=== PATIENT | female | born 1990 | race African-American/Black ===

== ENCOUNTER 2021-03-17 01:19 | Inpatient (IN) ==
[~2021-03-17 01:19] MED LIST: Famotidine 20 MG/2 ML VIAL IVP PRN; Metoclopramide 10 MG/2 ML VIAL IVP PRN; Naloxone 0.4 MG/ML INJ IVP PRN; Penicillin G Potassium 5,000,000 UNIT in 0.9 % Sodium Chloride Mini Bag 100 ML IVPB ONE; Ringers Solution, Lactated 1,000 ML ONE
[2021-03-17] MEDS ORDERED: Azithromycin 500 MG in 0.9 % Sodium Chloride 250 ML IVPB ONE (01:26)
[2021-03-17] MEDS ORDERED: Betamethasone Acet/SodPhos 30 MG/5 ML VIAL IM SCH (01:30)
[2021-03-17] MEDS ORDERED: Ringers Solution, Lactated 1,000 ML IVC SCH ×2 (01:30→05:37)
[2021-03-17] MEDS ORDERED: Metoclopramide 10 MG/2 ML VIAL ONE (01:58)
[2021-03-17] MEDS ORDERED: Famotidine 20 MG/2 ML VIAL ONE (01:59)
[2021-03-17 02:06] LABS: Basophils % 0.1 %; Eosinophils # 0.3 K/mcL (0.0-0.6); Eosinophils % 2.5 %; Hematocrit 31.7 % (35.3-44.9); Hemoglobin 9.9 g/dL (11.5-15.4); Immature Granulocytes % 0.4 % (0-4); Lymphocytes # 2.9 K/mcL (0.6-4.6); Lymphocytes % 25.1 %; Mean Corpuscular HGB Conc 31.2 g/dL (31.6-35.5); Mean Corpuscular Hemoglobin 26.7 pg (28.0-33.3); Mean Corpuscular Volume 85.4 fL (83.0-100.0); Monocytes # 0.7 K/mcL (0.0-1.3); Monocytes % 6.5 %; Neutrophils # 7.5 K/mcL (1.6-8.9); Platelet Count 255 K/mcL (140-400); Red Blood Count 3.71 M/mcL (3.82-4.97); Red Cell Distribution Width 13.8 % (11.5-14.5); Segmented Neutrophils % 65.4 %; White Blood Count 11.4 K/mcL (4.3-11.1)
[2021-03-17] MEDS ORDERED: *HR* HYDROmorphone 2 MG TABLET PO PRN (02:08)
[2021-03-17] MEDS ORDERED: *HR* Labetalol 20 MG/4 ML SYRINGE IVP PRN (02:08)
[2021-03-17] MEDS ORDERED: Acetaminophen IV 1,000 MG/100 ML BAG IVPB ONE ×2 (02:08→02:12)
[2021-03-17] MEDS ORDERED: *HR* HYDROmorphone (PF) 1 MG/ML SYRINGE IVP PRN (02:08)
[2021-03-17] MEDS ORDERED: *HR* OxyCODONE Immed Rel 5 MG TABLET PO PRN (02:08)
[2021-03-17] MEDS ORDERED: *HR* Succinylcholine 200 MG/10 ML VIAL IVP ONE (02:12)
[2021-03-17 02:19] LABS: Activated Partial Thrombo Time 30.7 Seconds (26.0-36.0)
[2021-03-17] MEDS ORDERED: *HR* FentaNYL (PF) 100 MCG/2 ML VIAL ONE ×2 (02:30→02:57)
[2021-03-17] MEDS ORDERED: Oxytocin 20 units/ LR 1000 mL 20 UNIT/1,000 ML BAG IVC ONE (03:03)
[2021-03-17 03:56] LABS: Amphetamine Screen,Urine Negative ng/mL (Cutoff=1000); Barbiturate Screen,Urine Negative ng/mL (Cutoff=200); Benzodiazepines Screen,Urine Negative ng/mL (Cutoff=200); Cannabinoid Screen,Urine Negative ng/mL (Cutoff = 50); Cocaine Screen,Urine Negative ng/mL (Cutoff= 300); Opiate Screen,Urine Negative ng/mL (Cutoff=300); Phencyclidine Screen,Urine Negative ng/mL (Cutoff=25)
[2021-03-17] MEDS ORDERED: Oxytocin 20 units/ LR 1000 mL 20 UNIT/1,000 ML BAG IVC SCH ×2 (05:37)
[2021-03-17] MEDS ORDERED: Metoclopramide 10 MG/2 ML VIAL IVP PRN (05:37)
[2021-03-17] MEDS ORDERED: Ondansetron 4 MG/2 ML VIAL IVP PRN (05:37)
[2021-03-17] MEDS ORDERED: Naloxone 0.4 MG/ML INJ IVP PRN ×2 (05:37)
[2021-03-17] MEDS ORDERED: Rho Immune Globulin 1,500 UNIT SYRINGE IM ONE (05:37)
[2021-03-17] MEDS ORDERED: Penicillin G Potassium 2,500,000 UNIT/105 ML MLS IVPB SCH (06:00)
[2021-03-17] MEDS: metroNIDAZOLE 500 MG TABLET PO SCH ×3 (07:43→20:26)
[2021-03-17] MEDS: cephALEXin 500 MG CAPSULE PO SCH ×3 (07:44→20:26)
[2021-03-17] MEDS: Morphine PCA 30 MG/ 30 ML 30 ML PCA.VIAL IVC PRN (07:47)
[2021-03-17] MEDS: Acetaminophen 325 MG TABLET PO SCH ×3 (09:09→20:26)
[2021-03-17] MEDS: Nicotine 14 MG PATCH.TD24 TD SCH (09:10)
[2021-03-17] MEDS: Ibuprofen 600 MG TABLET PO SCH ×3 (09:10→20:26)
[2021-03-17] MEDS: Simethicone 80 MG TAB.CHEW PO PRN (14:37)
[2021-03-18] MEDS: Ibuprofen 600 MG TABLET PO SCH (02:24)
[2021-03-18] MEDS: Acetaminophen 325 MG TABLET PO SCH ×3 (02:24→20:26)
[2021-03-18 06:29] LABS: Basophils % 0.1 %; Eosinophils % 0.2 %; Hematocrit 23.3 % (35.3-44.9); Immature Granulocytes % 0.6 % (0-4); Lymphocytes # 1.9 K/mcL (0.6-4.6); Lymphocytes % 11.2 %; Mean Corpuscular HGB Conc 32.6 g/dL (31.6-35.5); Mean Corpuscular Hemoglobin 27.9 pg (28.0-33.3); Mean Corpuscular Volume 85.7 fL (83.0-100.0); Mean Platelet Volume 9.9 fL (9.4-12.4); Neutrophils # 14.2 K/mcL (1.6-8.9); Platelet Count 212 K/mcL (140-400); Red Blood Count 2.72 M/mcL (3.82-4.97); Red Cell Distribution Width 13.9 % (11.5-14.5); Segmented Neutrophils % 81.9 %
[2021-03-18 06:41] LABS: Hemoglobin 7.6 g/dL (11.5-15.4); White Blood Count 17.3 K/mcL (4.3-11.1)
[2021-03-18] MEDS ORDERED: Ketorolac 30 MG/ML VIAL IVP SCH (08:45)
[2021-03-18] MEDS: Morphine PCA 30 MG/ 30 ML 30 ML PCA.VIAL IVC PRN (08:52)
[2021-03-18] MEDS: Simethicone 80 MG TAB.CHEW PO PRN (08:59)
[2021-03-18] MEDS: metroNIDAZOLE 500 MG TABLET PO SCH ×3 (08:59→20:26)
[2021-03-18] MEDS: Prenatal Vit/FA 1 EACH TABLET PO SCH (08:59)
[2021-03-18] MEDS ORDERED: *HR* Buprenorphine HCl 8 MG TAB.SUBL SL ONE (09:54)
[2021-03-18] MEDS: *HR* Buprenorphine HCl 8 MG TAB.SUBL SL SCH ×2 (13:04→20:26)
[2021-03-18] MEDS: cephALEXin 500 MG CAPSULE PO SCH ×3 (13:04→20:25)
[2021-03-18 20:49] VITALS: O2SAT 99
[2021-03-19 07:51] VITALS: BP 123/74; PULSE 64; TEMP 98.1
[2021-03-19] MEDS: Prenatal Vit/FA 1 EACH TABLET PO SCH (09:41)
[2021-03-19] MEDS ORDERED: *HR* Buprenorphine HCl 8 MG TAB.SUBL SL ONE (10:00)
[2021-03-19] MEDS: Nicotine 14 MG PATCH.TD24 TD SCH (13:19)
[2021-03-19] MEDS: Acetaminophen 325 MG TABLET PO SCH (13:19)
== END 2021-03-19 14:47 | disposition home or self-care (01) | DRG 540 ==
LOC: 1NENULAB → 1NENUOBS 05:37 → 1NENUPED 03-18 17:39
PROVIDERS: ADMIT Obstetrics & Gynecology; ATTEND Obstetrics & Gynecology